=== PATIENT | female | born 1995 | race African-American/Black ===

== ENCOUNTER 2021-08-18 08:35 | Emergency (ER) | payer MEDICAID, OTHER ==
[~2021-08-18] VITALS: Ht 162.6 cm; Wt 145.0 kg
[2021-08-18] MEDS ORDERED: IBUPROFEN 800MG TABLET PO ONE (09:15)
[2021-08-18 09:42] LABS: CLARITY URINE CLEAR (CLEAR); COLOR URINE YELLOW (YELLOW); KETONES URINE NEGATIVE (NEGATIVE); LEUKOCYTE ESTERASE URINE NEGATIVE (NEGATIVE); NITRITE URINE NEGATIVE (NEGATIVE); OCCULT BLOOD URINE NEGATIVE (NEGATIVE); PROTEIN URINE 3+ (NEGATIVE); SPECIFIC GRAVITY URINE 1.015 (1.005-1.030); UROBILINOGEN URINE 0.2 E.U./dL (0.2-1.0)
[2021-08-18 09:58] VITALS: BP 136/83
[2021-08-18] MEDS ORDERED: NITR-87 MT (10:18)
[2021-08-18] MEDS ORDERED: PYR200 MT (10:18)
== END 2021-08-18 10:48 | disposition home or self-care (01) ==
LOC: ER 08:35
DX: Z98.890 Other specified postprocedural states (principal); M54.50 Low back pain, unspecified
CPT/HCPCS: 81003; 81025; 82962; 99283

== ENCOUNTER 2022-03-07 13:42 | Emergency (ER) | payer MEDICAID, OTHER ==
[~2022-03-07] VITALS: Ht 162.6 cm; Wt 127.0 kg
[~2022-03-07 13:42] MED LIST: NITR-87 MT; PYR200 MT
[2022-03-07 13:48] VITALS: BP 152/96
[2022-03-07] MEDS ORDERED: ACETAMINOPHEN 325MG TABLET PO ONE (14:30)
[2022-03-07] MEDS ORDERED: ACET-2708 MT (15:48)
== END 2022-03-07 15:59 | disposition home or self-care (01) ==
LOC: ER 14:03
DX: S80.01XA Contusion of right knee, initial encounter (principal); F17.210 Nicotine dependence, cigarettes, uncomplicated; Z98.890 Other specified postprocedural states; V43.62XA Car passenger injured in collision with other type car in traffic accident, initial encounter; Y93.89 Activity, other specified; Y92.488 Other paved roadways as the place of occurrence of the external cause
CPT/HCPCS: 73564; 73590; 81025; 99284

== ENCOUNTER 2022-07-22 18:27 | Emergency (ER) | payer MEDICAID, OTHER ==
[~2022-07-22] VITALS: Ht 162.6 cm; Wt 145.0 kg
[~2022-07-22 18:27] MED LIST changes: +ACET-2708 MT
[2022-07-22 18:32] VITALS: BP 151/99
[2022-07-22] MEDS ORDERED: ONDANSETRON HCL 4MG/2ML INJ IV STA (19:46)
[2022-07-22] MEDS ORDERED: ACETAMINOPHEN 325MG TABLET PO STA (19:46)
[2022-07-22] MEDS ORDERED: SODIUM CHLORIDE 0.9% 1,000 ML IV ONE (20:00)
[2022-07-22 20:40] LABS: CLARITY URINE TURBID (CLEAR); COLOR URINE RED (YELLOW); KETONES URINE NEGATIVE (NEGATIVE); LEUKOCYTE ESTERASE URINE 1+ (NEGATIVE); NITRITE URINE NEGATIVE (NEGATIVE); OCCULT BLOOD URINE 3+ (NEGATIVE); PH URINE 5.5 (4.5-8.0); PROTEIN URINE 3+ (NEGATIVE); SPECIFIC GRAVITY URINE 1.024 (1.005-1.030)
[2022-07-22 20:47] LABS: BASOPHILS % 0.6 % (0.0-2.0); EOSINOPHILS % 1.7 % (0.0-5.0); HEMATOCRIT. 35.1 % (36.0-48.0); HEMOGLOBIN. 11.3 g/dL (12.0-16.0); LYMPHOCYTES % 27.4 % (20.0-50.0); MEAN CORPUSCULAR HEMOGLOBIN 25.9 pg (28.0-32.0); MEAN CORPUSCULAR VOLUME 80.9 fL (81.0-99.0); MEAN PLATELET VOLUME 8.8 fl (7.4-10.4); MONOCYTES % 5.6 % (2.0-8.0); NEUTROPHILS % 64.7 % (40.0-76.0); PLATELET 393 x1000/uL (130-400); RED BLOOD CELL COUNT 4.34 mill/uL (4.2-5.4); RED CELL DISTRIBUTION WIDTH 15.3 % (11.6-14.6)
[2022-07-22 20:56] LABS: CHLORIDE 105 mEq/L (98-107)
[2022-07-22 20:57] LABS: PROTHROMBIN TIME 10.3 sec (9.6-11.0)
[2022-07-22 20:58] LABS: HCG SCREEN NEGATIVE
[2022-07-22] MEDS ORDERED: IBUP-2029 MT (22:13)
== END 2022-07-22 22:41 | disposition home or self-care (01) ==
LOC: ER 18:27
DX: R10.31 Right lower quadrant pain (principal); I10 Essential (primary) hypertension
CPT/HCPCS: 36415; 74176; 76830; 76856; 80053; 81003; 81025; 83605; 83690; 84703; 85025; 85610; 96360; 99285; J7030; J2405

== ENCOUNTER 2022-12-20 15:38 | Emergency (ER) | payer MEDICAID, OTHER ==
[~2022-12-20] VITALS: Ht 162.6 cm; Wt 141.0 kg
[~2022-12-20 15:38] MED LIST changes: +IBUP-2029 MT
[2022-12-20] MEDS ORDERED: ACETAMINOPHEN 325MG TABLET PO ONE (17:45)
[2022-12-20 17:57] LABS: CLARITY URINE CLEAR (CLEAR); COLOR URINE YELLOW (YELLOW); KETONES URINE NEGATIVE (NEGATIVE); LEUKOCYTE ESTERASE URINE NEGATIVE (NEGATIVE); NITRITE URINE NEGATIVE (NEGATIVE); OCCULT BLOOD URINE NEGATIVE (NEGATIVE); PH URINE 6.5 (4.5-8.0); PROTEIN URINE 3+ (NEGATIVE); SPECIFIC GRAVITY URINE 1.019 (1.005-1.030)
[2022-12-20 18:08] LABS: HEMATOCRIT. 37.7 % (36.0-48.0); HEMOGLOBIN. 11.5 g/dL (12.0-16.0); MEAN CORPUSCULAR HEMOGLOBIN 23.2 pg (28.0-32.0); MEAN CORPUSCULAR VOLUME 76.2 fL (81.0-99.0); MEAN PLATELET VOLUME 8.3 fl (7.4-10.4); PLATELET 417 x1000/uL (130-400); RED BLOOD CELL COUNT 4.95 mill/uL (4.2-5.4); RED CELL DISTRIBUTION WIDTH 16.5 % (11.6-14.6)
[2022-12-20 18:14] LABS: CHLORIDE 101 mEq/L (98-107)
[2022-12-20] MEDS ORDERED: ACETAMINOPHEN 325MG TABLET PO PRN (18:15)
[2022-12-20] MEDS ORDERED: SODIUM CHLORIDE 0.9% 1,000 ML IV ONE (18:15)
[2022-12-20 18:18] LABS: PROTHROMBIN TIME 10.4 sec (9.6-11.0)
[2022-12-20 18:24] LABS: PLATELET ESTIMATE INCREASED
[2022-12-20 18:43] LABS: HCG SCREEN NEGATIVE
[2022-12-20] MEDS ORDERED: IBUPROFEN 600MG TABLET PO ONE (20:15)
[2022-12-20] MEDS ORDERED: DICYCLOMINE HCL 10MG CAPSULE PO ONE (20:15)
[2022-12-20] MEDS ORDERED: IBUP-2029 MT (20:43)
[2022-12-20] MEDS ORDERED: ONDA4TAB50 MT (20:43)
[2022-12-20 21:18] VITALS: BP 165/87
== END 2022-12-20 21:20 | disposition home or self-care (01) ==
LOC: ER 15:38
DX: A08.4 Viral intestinal infection, unspecified (principal); D72.829 Elevated white blood cell count, unspecified; N93.9 Abnormal uterine and vaginal bleeding, unspecified; D64.9 Anemia, unspecified; Z98.890 Other specified postprocedural states
CPT/HCPCS: 36415; 74176; 76830; 76856; 80053; 81003; 81025; 83690; 84703; 85025; 85610; 86850; 86900; 86901; 99284; J7030